=== PATIENT | female | born 1975 | race Caucasian/White ===

== ENCOUNTER 2017-09-19 12:19 | Observation (INO) ==
--- NOTE | 2017-09-19 12:33 | Emergency Department Note ---
Disposition Clinical Impression: Bradycardia Dyspnea Qualifiers: Dyspnea type: unspecified Qualified Code(s): R06.00 - Dyspnea, unspecified Disposition: Admitted As Inpatient Condition: Undetermined Referrals: Kendrick Altman MD [Primary Care Provider] - Forms: ED Satisfaction Letter Time of Disposition: 15:14 General Adult HPI - General Chief complaint: ED Arrhythmia/Palpitations Stated complaint: low heart rate Time Seen by Provider: 09/19/17 12:28 Source: patient, EMS Mode of arrival: EMS Limitations: no limitations Nursing Notes Reviewed: Yes Vital Signs Reviewed: Yes - History of Present Illness HPI Narrative: 42-year-old female who arrives from urgent care by EMS with concern for bradycardia. The patient went into the urgent care complaining of some mild shortness of breath and generalized weakness feeling. The patient denied any chest pain. She is currently on Lasix and losartan for hypertension. Lasix for fluid overload at times but has never been diagnosed with CHF. Patient denies any other complaints at this time. She is alert and oriented during the entire urgent care visit, EMS and arrival to the emergency department. She denies any other complaints at this time. The patient's heart rate was in the mid 40s upon arrival from EMS but they stated in route her heart rate increase in the 60s. At that time she denied any other complaints other than this mild shortness of breath. She is resting comfortably at this time an alert and oriented 3 and answering all questions appropriately. Her blood pressure is 140s and the systolic. Onset (ago): unknown Radiation: non-radiation Pain Scale: 0 Improves with: nothing Worsens with: nothing Associated symptoms: Reports: shortness of breath Treatments Prior to Arrival: none - Related Data Home Medications Medication Instructions Recorded Confirmed ALPRAZolam [Xanax 0.5 MG Tablet] 0.5 mg PO HS PRN 12/01/16 12/01/16 Cholecalciferol (D-3) [Vitamin D] 2,000 unit PO DAILY 12/01/16 12/01/16 Escitalopram [Lexapro] 10 mg PO HS 12/01/16 12/01/16 Esomeprazole Magnesium [Nexium] 40 mg PO HS 12/01/16 12/01/16 Losartan Potassium [Cozaar] 50 mg PO HS 12/01/16 12/01/16 Multivitamin [One Daily Essential] 1 each PO DAILY 12/01/16 12/01/16 SUMAtriptan Succinate [Imitrex] 100 mg PO ONCE PRN MDD MAY REPEAT 12/01/1612/01 IN 2 HOURS Torsemide [Demadex] 10 mg PO DAILY PRN 12/01/16 12/01/16 Allergies Allergy/AdvReac Type Severity Reaction Status Date / Time sulfamethoxazole Allergy Hives Unverified 09/19/17 12:26 [From Bactrim] trimethoprim [From Bactrim] Allergy Hives Unverified 09/19/17 12:26 Amoxicillin AdvReac EXTREME Unverified 09/19/17 12:26 NAUSEA propoxyphene AdvReac NAUSEA,VOMI Unverified 09/19/17 12:26 [From Darvocet-N] TING All systems ED: reviewed and negative except as stated. Constitutional: Denies: fever, chills, weakness, weight change Cardiovascular: Reports: edema (Baseline). Denies: chest pain, palpitations, dyspnea on exertion, orthopnea, syncope Respiratory: Reports: dyspnea. Denies: cough, wheezes, hemoptysis Gastrointestinal: Denies: abdominal pain, nausea, vomiting Musculoskeletal: Denies: back pain, myalgia Integumentary: Denies: rash Neurological: Denies: headache, weakness, numbness, paresthesias, confusion, abnormal gait, vertigo Past Medical History - Past Medical History Attestation: Yes The following information was validated with the patient. Source: patient Medical history: Reports: hypertension Surgical history: Reports: non-contributory Psychiatric history: Reports: anxiety, depression - Social History Smoking Status: Never smoker Smokeless Tobacco Status: No Alcohol use: Reports: rarely Drug use: Reports: none Physical Exam - General Limitations: no limitations General appearance: alert, in no apparent distress - Head Head exam: atraumatic, normocephalic, normal inspection - Eye Eye exam: Present: normal appearance, PERRL, EOMI - ENT ENT exam: normal exam, normal oropharynx, mucous membranes moist - Neck Neck exam: Present: normal inspection, full ROM, trachea midline - Chest Chest inspection: Present: normal inspection, symmetric chest wall rise - Respiratory Respiratory exam: Present: normal lung sounds bilaterally - Cardiovascular Cardiovascular exam: Present: regular rate, normal rhythm, normal heart sounds - Abdominal Exam Abdominal exam: Present: soft, Non-Tender. Absent: tenderness, distention, guarding, rebound, rigidity - Extremities Exam Extremities exam: Present: normal inspection, full ROM, pedal edema (Nonpitting) . Absent: tenderness - Neurological Exam Neurological exam: Present: alert, oriented X3, CN II-XII intact. Absent: motor sensory deficit Course - Reevaluation(s) Reevaluation #1: patient's d-dimer was elevated at 848, we will perform a CTA of her chest. The patient remained bradycardic intermittently between the upper 40s to low 50s. She remains mildly generalized weak and short of breath. No acute distress noted on examination. The patient remains stable at this time. Time: 13:19 Reevaluation #2: The patient's CTA of the chest demonstrates no acute process including PE. With concern for The patient's symptoms when she drops into the 40s with unknown at etiology, I will speak to cardiology with likely admission to the hospital for further workup and care. Patient made aware and agrees up plans. Time: 14:34 - Consultations Consultation #1: we spoke with Dr. Murillo in cardiology. He will agreed to be consulted on the patient at this time. We will admit the patient to the hospitalist. Time: 14:56 Vital Signs Temperature 98.4 F 09/19/17 12:22 Pulse Rate 48 09/19/17 12:22 Respiratory Rate 16 09/19/17 12:22 Blood Pressure 160/85 09/19/17 12:22 O2 Sat by Pulse Oximetry 97 09/19/17 12:22 Temperature 98.4 F 09/19/17 12:22 Pulse Rate 48 09/19/17 14:21 Respiratory Rate 18 09/19/17 14:21 Blood Pressure 116/71 09/19/17 14:21 O2 Sat by Pulse Oximetry 100 09/19/17 14:21 Oxygen Delivery Oxygen Delivery Room Air Medical Decision Making - MDM Narrative Medical decision making narrative: patient's workup in the emergency department demonstrates no acute process. The patient has remained bradycardic and mildly symptomatic with her shortness of breath and generalized weakness. She has been stable since she is arrived to the emergency department. After speaking with Dr. Murillo and cardiology he had no further recommendations and agrees to be consulted on the patient. Accepted by Dr. Fontanez. - Lab Data Lab results reviewed: Yes I reviewed the patient's lab results. Result diagrams: 09/19/17 12:38 09/19/17 12:38 Lab Results 09/19/17 09/19/17 09/19/17 Range/Units 12:38 12:38 12:38 WBC 8.0 (4.3-11.1) K/mcL RBC 4.06 (3.82-4.97) M/mcL Hgb 11.7 (11.5-15.4) g/dL Hct 34.9 L (35.3-44.9) % MCV 86.0 (83.0-100.0) fL MCH 28.8 (28.0-33.3) pg MCHC 33.5 (31.6-35.5) g/dL RDW 14.0 (11.5-14.5) % Plt Count 242 (140-400) K/mcL MPV 11.3 (9.4-12.4) fL Immature Gran % 0.2 (0-4) % Seg Neutrophils % 61.7 % Lymphocytes % 31.1 % Monocytes % 5.1 % Eosinophils % 1.4 % Basophils % 0.5 % Neutrophils # 4.9 (1.6-8.9) K/mcL Lymphocytes # 2.5 (0.6-4.6) K/mcL Monocytes # 0.4 (0.0-1.3) K/mcL Eosinophils # 0.1 (0.0-0.6) K/mcL Basophils # 0.0 (0.0-0.2) K/mcL PT 11.8 (9.4-12.1) Seconds INR 1.1 APTT 27.7 (26.0-36.0) Seconds D-Dimer 848 H (0-500) ng/mLFEU Sodium 142 (136-145) mEq/L Potassium 3.9 (3.5-4.5) mEq/L Chloride 111 H (98-109) mEq/L Carbon Dioxide 22 (19-29) mEq/L BUN 8 (7-20) mg/dL Creatinine 0.88 (0.57-1.11) mg/dL Est GFR ( Amer) > 60 (> 60) Est GFR (Non-Af Amer) > 60 (> 60) BUN/Creatinine Ratio 9 (6-26) Glucose 98 (70-99) mg/dL Calculated Osmolality 292 (280-300) Calcium 9.2 (8.6-10.8) mg/dL Troponin I (0-0.03) ng/mL TSH 2.655 (0.350-4.840) mcIU/mL 09/19/17 Range/Units 12:38 WBC (4.3-11.1) K/mcL RBC (3.82-4.97) M/mcL Hgb (11.5-15.4) g/dL Hct (35.3-44.9) % MCV (83.0-100.0) fL MCH (28.0-33.3) pg MCHC (31.6-35.5) g/dL RDW (11.5-14.5) % Plt Count (140-400) K/mcL MPV (9.4-12.4) fL Immature Gran % (0-4) % Seg Neutrophils % % Lymphocytes % % Monocytes % % Eosinophils % % Basophils % % Neutrophils # (1.6-8.9) K/mcL Lymphocytes # (0.6-4.6) K/mcL Monocytes # (0.0-1.3) K/mcL Eosinophils # (0.0-0.6) K/mcL Basophils # (0.0-0.2) K/mcL PT (9.4-12.1) Seconds INR APTT (26.0-36.0) Seconds D-Dimer (0-500) ng/mLFEU Sodium (136-145) mEq/L Potassium (3.5-4.5) mEq/L Chloride (98-109) mEq/L Carbon Dioxide (19-29) mEq/L BUN (7-20) mg/dL Creatinine (0.57-1.11) mg/dL Est GFR ( Amer) (> 60) Est GFR (Non-Af Amer) (> 60) BUN/Creatinine Ratio (6-26) Glucose (70-99) mg/dL Calculated Osmolality (280-300) Calcium (8.6-10.8) mg/dL Troponin I 0.01 (0-0.03) ng/mL TSH (0.350-4.840) mcIU/mL - Radiology Data Radiology results reviewed: Yes I reviewed the patient's radiology results. - EKG Data EKG #1 EKG attestation: Yes I reviewed and interpreted this EKG. EKG results narrative: Heart rate 53 bpm. MN interval 147 ms. QTc 460 ms. Sinus bradycardia. No ST elevation or ST depression noted. EKG similar appearance to EKG from urgent care with the exception of slightly higher rate. Remains bradycardic.
[2017-09-19 12:48] LABS: Basophils % 0.5 %; Eosinophils # 0.1 K/mcL (0.0-0.6); Eosinophils % 1.4 %; Hematocrit 34.9 % (35.3-44.9); Hemoglobin 11.7 g/dL (11.5-15.4); Immature Granulocytes % 0.2 % (0-4); Lymphocytes # 2.5 K/mcL (0.6-4.6); Lymphocytes % 31.1 %; Mean Corpuscular HGB Conc 33.5 g/dL (31.6-35.5); Mean Corpuscular Hemoglobin 28.8 pg (28.0-33.3); Mean Platelet Volume 11.3 fL (9.4-12.4); Monocytes # 0.4 K/mcL (0.0-1.3); Monocytes % 5.1 %; Neutrophils # 4.9 K/mcL (1.6-8.9); Platelet Count 242 K/mcL (140-400); Red Blood Count 4.06 M/mcL (3.82-4.97); Segmented Neutrophils % 61.7 %
[2017-09-19 12:58] LABS: INR 1.1; Prothrombin Time 11.8 Seconds (9.4-12.1)
[2017-09-19 13:01] LABS: Activated Partial Thrombo Time 27.7 Seconds (26.0-36.0)
[2017-09-19 13:02] LABS: BUN/Creatinine Ratio 9 (6-26); Blood Urea Nitrogen 8 mg/dL (7-20); Calcium 9.2 mg/dL (8.6-10.8); Carbon Dioxide 22 mEq/L (19-29); Chloride 111 mEq/L (98-109); Glucose 98 mg/dL (70-99); Osmolality,Calculated 292 (280-300); Potassium 3.9 mEq/L (3.5-4.5); Sodium 142 mEq/L (136-145); eGFR For African Americans > 60 (> 60); eGFR For Non-African Americans > 60 (> 60)
[2017-09-19 13:24] LABS: Thyroid Stimulating Hormone 2.655 mcIU/mL (0.350-4.840)
--- NOTE | 2017-09-19 13:47 | Emergency Department Note ---
START Narrative - START START: I examined this patient and my medical decision-making was reviewed with the Resident Physician. I agree with the documented findings, disposition and treatment plan as described except to the extent set forth below. 42-year-old female presents emergency room for 2 days of shortness of breath. Patient went to urgent care was found to have a low heart rate in the 40s and was sent to the ER. She has had a little bit of intermittent chest pain associated with the shortness of breath. No long travels in a car plane. She states her legs are slightly swollen as compared to normal. She denies any fevers. No cough or sputum production. No history of any PE or DVT. No coronary disease. EKG shows sinus bradycardia. Rule her out for a possible pulmonary embolus as well. We will do a CTA of the chest. Patient will need to be admitted for further cardiac workup as well.
[2017-09-19] MEDS ORDERED: Acetaminophen 325 MG TABLET PO PRN (17:07)
[2017-09-19] MEDS ORDERED: Naloxone 0.4 MG/ML INJ IVP PRN (17:07)
--- NOTE | 2017-09-19 17:26 | Internal Med History&Physical ---
Date of Encounter: 09/19/17 Time of Encounter: 17:21 Assessment and Plan (1) Bradycardia Current visit: Yes Status: Acute Patient has been experiencing exertional dyspnea as well as exertional chest pain. Heart rate was found to be 48 on presentation. EKG does show a borderline QTc interval of 460 patient is on Lexapro we will hold that for now Will obtain a cardiac echo Continuous cardiac monitoring Monitor electrolytes [employer] has been consulted (2) Chest pain Current visit: Yes Status: Acute Patient has been experiencing chest pain on exertion which is relieved with rest she does not have any cardiac history and has not had any cardiac workup in the past as suspect this is related to her bradycardia we will continue to trend her troponins Continuous cardiac monitoring Continue with statin we will add an aspirin no beta venkat at this time due to bradycardia Cardiology has been consulted We will obtain a cardiac echo Qualifiers: Chest pain type: unspecified Qualified Code(s): R07.9 - Chest pain, unspecified (3) Hypertension Current visit: No Status: Chronic Presently blood pressure is controlled we will continue with home medications losartan Qualifiers: Hypertension type: essential hypertension Qualified Code(s): I10 - Essential (primary) hypertension (4) DVT prophylaxis Current visit: Yes Status: Acute Lovenox subcutaneous Internal Medicine - H&P: HPI Chief complaint: CP Admitted From: Emergency Dept Plans for Post Hospital Care: Home History of present illness: Ms. Whalen is a 42 year old female past history of hypertension and prediabetes GERD depression hypercholesterolemia. According to the patient's for the past 2 days she has been experiencing midsternal chest pressure 5 out of 10 nonradiating which is worse on exertion and relieves with rest. She has associated symptoms of shortness of breath and fatigue she presented to urgent care with concerns of shortness of breath she was found to have a heart rate in the 40s and was advised to go to the ER. Patient denies any past cardiac history and has not had a cardiac workup. She denies any syncopal episodes or lightheadedness. During transport by EMS for heart rate has been 40s upon arrival and increased to the 60s once arrived to the ER. Lab work was obtained which was unremarkable except for an elevated d-dimer CTA chest was obtained which was negative for any PE. ER physician did speak to cardiology who will see patient upon consult. Patient has been admitted for further workup and evaluation. Presently patient lies A chest pain or sense of breath. She is 53 on the monitor and his hemodynamic is stable at this time. Past Med Surg Social Fam HX - Past Medical History Medical history: hypertension Psychiatric history: anxiety, depression - Past Surgical History Surgical History: non-contributory - Social History Smoking Status: Never smoker Smokeless Tobacco Status: No Alcohol use: rarely Drug use: none Internal Medicine - H&P: Meds ALPRAZolam [Xanax 0.5 MG Tablet] 0.5 mg PO HS PRN 12/01/16 [History] Cholecalciferol (D-3) [Vitamin D] 2,000 unit PO DAILY 12/01/16 [History] Escitalopram [Lexapro] 10 mg PO HS 12/01/16 [History] Esomeprazole Magnesium [Nexium] 40 mg PO HS 12/01/16 [History] Losartan Potassium [Cozaar] 50 mg PO HS 12/01/16 [History] Multivitamin [One Daily Essential] 1 each PO DAILY 12/01/16 [History] SUMAtriptan Succinate [Imitrex] 100 mg PO Q2H PRN MDD 200 mg 12/01/16 [History] Torsemide [Demadex] 10 mg PO DAILY PRN 12/01/16 [History] 3 Allergy/AdvReac Type Severity Reaction Status Date / Time sulfamethoxazole Allergy Hives Unverified 09/19/17 12:26 [From Bactrim] trimethoprim [From Bactrim] Allergy Hives Unverified 09/19/17 12:26 Amoxicillin AdvReac EXTREME Unverified 09/19/17 12:26 NAUSEA propoxyphene AdvReac NAUSEA,VOMI Unverified 09/19/17 12:26 [From Darvocet-N] TING All Systems PM: A 10-system review of systems was performed and is negative for pertinent findings except as documented above in the HPI. - Constitutional Constitutional: fatigue, no chills, no fever(s), no night sweats - EENT Eyes: no change in vision, no discharge, no pain, no photophobia Nose, mouth and throat: no dysphagia, no nasal discharge, no neck pain, no sore throat - Cardiovascular Cardiovascular ROS IM: chest pain, dyspnea on exertion, edema, no diaphoresis, no lightheadedness, no palpitations, no syncope - Respiratory Respiratory: dyspnea on exertion - Gastrointestinal Gastrointestinal: no abdominal pain, no diarrhea, no hematemesis, no hematochezia, no melena, no nausea, no vomiting - Genitourinary Genitourinary: no change in urinary stream, no dysuria, no flank pain, no hematuria - Musculoskeletal Musculoskeletal ROS IM: no numbness, no tingling - Integumentary Integumentary IM: no rash, no unusual bruising - Neurological Neurological ROS: no confusion, no convulsions, no focal weakness, no numbness, no tingling, no tremor(s) - Hematologic/Lymphatic Hematologic/Lymphatic: no easy bruising - Constitutional Vitals: Temp Pulse Resp BP Pulse Ox 98.1 F 49 12 139/86 100 09/19/17 17:14 09/19/17 17:14 09/19/17 17:14 09/19/17 17:14 09/19/17 17:14 General appearance: Present: A&O X 3 - Head Head exam: Present: atraumatic, normocephalic - Eye Eye exam: Present: PERRL, conjuntiva pink, sclera anicteric Pupils: Present: PERRL - Neck Neck exam general surgery: Present: supple, trachea midline. Absent: lymphadenopathy - Respiratory Respiratory exam: Present: CTAB. Absent: accessory muscle use, rales, rhonchi, wheezes - Cardiovascular Cardiovascular exam: Present: bradycardia, RRR, +S1, +S2. Absent: diastolic murmur, gallop, rubs, systolic murmur - GI/Abdominal GI/Abdominal exam: Present: normal bowel sounds, soft, no peritoneal signs. Absent: distended, tenderness - Extremities Exam Extremities exam: Present: pedal edema, warm, radial pulses palpable and symmetrical. Absent: calf tenderness, cyanotic - Neurological Exam Neurological exam: Present: CN II-XII intact, oriented X3, no focal deficits. Absent: pronater drift, facial droop, speech deficit - Skin Skin exam: Present: dry, intact Internal Med - H&P Results - Labs CBC & Chem 7: 09/19/17 12:38 09/19/17 12:38 - EKG Data Rate: bradycardia - EKG Data EKG comments: 09/19/17 17:35 QTC 460 - Diagnostic Studies Other Images Additional comments: Chest X-Ray 09/19/17 12:28 IMPRESSION: No acute cardiopulmonary disease. D/ / Zac Lombardi MD / Zac Lombardi MD Interpreting Provider: Zac Lombardi MD Chest CTA 09/19/17 13:17 IMPRESSION: No evidence of pulmonary embolism or acute pulmonary abnormality. Benign calcified granuloma right upper lobe. Nonspecific small amount of fluid in the anterior mediastinum. D/ / 09/19/2017 14:41:25 Elizabeth Aguilar MD / guille Interpreting Provider: Elizabeth Aguilar MD
[2017-09-19] MEDS ORDERED: Aspirin 325 MG TABLET PO ONE (18:37)
[2017-09-20 06:12] LABS: Basophils % 0.6 %; Eosinophils # 0.2 K/mcL (0.0-0.6); Eosinophils % 2.6 %; Hematocrit 32.6 % (35.3-44.9); Hemoglobin 11.1 g/dL (11.5-15.4); Immature Granulocytes % 0.2 % (0-4); Lymphocytes # 2.1 K/mcL (0.6-4.6); Mean Corpuscular Hemoglobin 29.4 pg (28.0-33.3); Mean Corpuscular Volume 86.5 fL (83.0-100.0); Mean Platelet Volume 11.8 fL (9.4-12.4); Monocytes # 0.5 K/mcL (0.0-1.3); Monocytes % 6.9 %; Neutrophils # 3.8 K/mcL (1.6-8.9); Platelet Count 199 K/mcL (140-400); Red Blood Count 3.77 M/mcL (3.82-4.97); Red Cell Distribution Width 14.1 % (11.5-14.5); Segmented Neutrophils % 57.7 %
[2017-09-20 06:24] LABS: BUN/Creatinine Ratio 10 (6-26); Blood Urea Nitrogen 9 mg/dL (7-20); Calcium 8.8 mg/dL (8.6-10.8); Carbon Dioxide 23 mEq/L (19-29); Chloride 111 mEq/L (98-109); Cholesterol 145 mg/dL (< 200); Glucose 111 mg/dL (70-99); HDL Cholesterol 49 mg/dL (40-59); LDL Cholesterol,Calculated 76 mg/dL (0-99); Magnesium 2.1 mg/dL (1.6-2.6); Osmolality,Calculated 291 (280-300); Potassium 3.8 mEq/L (3.5-4.5); Sodium 141 mEq/L (136-145); Triglycerides 101 mg/dL (< 150); eGFR For African Americans > 60 (> 60); eGFR For Non-African Americans > 60 (> 60)
[2017-09-20 06:29] LABS: Amphetamine Screen,Urine Negative ng/mL (Cutoff=1000); Barbiturate Screen,Urine Negative ng/mL (Cutoff=200); Benzodiazepines Screen,Urine Negative ng/mL (Cutoff=200); Cannabinoid Screen,Urine Negative ng/mL (Cutoff = 50); Cocaine Screen,Urine Negative ng/mL (Cutoff= 300); Opiate Screen,Urine Negative ng/mL (Cutoff=300); Phencyclidine Screen,Urine Negative ng/mL (Cutoff=25)
[2017-09-20] MEDS ORDERED: *HR* Enoxaparin 40 MG/0.4 ML SYRINGE SQ SCH (07:00)
[2017-09-20] MEDS ORDERED: Multivit/Ca/Min/Fe/FA 1 TAB TABLET PO SCH (09:00)
[2017-09-20] MEDS ORDERED: Aspirin 81 MG TAB.CHEW PO SCH (09:00)
--- NOTE | 2017-09-20 09:31 | Cardiology Consult Note ---
Date of Encounter: 09/20/17 Time of Encounter: 09:19 Assessment and Plan (1) Chest pain Current Visit: Yes Status: Acute ECHO from 09/19/17 reviewed: LVEF 65% Normal left ventricular diastolic function Normal right ventricular structure and function No significant valvular dysfunction No pulmonary hypertension Trop neg x3 EKG reviewed and NSR this morning Currently on ASA, ARB and statin therapy Chest pain has subjectively resolved Based her risk factors, we recommend stress ECHO to further evaluate chest pain along with bradycardia. NPO. See below. Qualifiers: Chest pain type: precordial pain Qualified Code(s): R07.2 - Precordial pain (2) Bradycardia Current Visit: Yes Status: Acute Hemodynamically stable. BP stable on ARB therapy. No BB. Heart rate in 40s on presentation to ED yesterday Nursing reports HR low as 35 while sleeping last night Mild QT prolongation - Agree with holding Lexapro This morning HR in 50-70s during evaluation TSH normal 2.65. Patient does exercise three times per week with elliptical and weight lifting Recommend stress ECHO today and may need event monitoring on discharge (3) Dyspnea Current Visit: Yes Status: Acute Clinically resolving LE edema significantly improved since yesterday Patient does not have a high sodium diet Patient taking Torsemide at home for recent edema after weight loss Qualifiers: Dyspnea type: dyspnea on exertion Qualified Code(s): R06.09 - Other forms of dyspnea (4) Hypertension Current Visit: No Status: Chronic Stable at this time. ARB therapy. No changes. Qualifiers: Hypertension type: essential hypertension Qualified Code(s): I10 - Essential (primary) hypertension (5) Hypercholesteremia Current Visit: Yes Status: Chronic Statin therapy. (6) NAFLD (nonalcoholic fatty liver disease) Current Visit: Yes Status: Chronic Discussion w patient/family: The assessment and plan as outlined above was discussed with the patient and/or family members who expressed understanding and agreement. All questions were answered. Thank you for involving us in the care of your patient. Please call with any questions. History of Present Illness Chief complaint: bradycardia History of present illness: Ms. Whalen is a very pleasant 42 year old female with a past medical history of hypertension, hypercholesterolemia, prediabetes, GERD, depression and fatty liver disease who presented to the [facility] ED yesterday after being sent by an Urgent Care on [facility] for bradycardia. She reports over the last week or so, she has been experiencing weight gain, leg swelling, dyspnea on exertion , chest pain on exertion and lightheadedness. She goes on to state that she has been experiencing shortness of breath/chest pain at rest for one day. Patient states the chest pain is 1/10 at rest and 4/10 on exertion. Patient works at [employer] in [place] [employer] working a [employer] and yesterday as she walked down a trailer carrying some items, she became profoundly short of breath, chest pain and lightheaded. After evaluation at the urgent care and transfer to [facility] ED, on arrival she was found to have HR in 40s with stable BP. EKG sinus bartolome. CXR was negative for acute process and DDIMER was 848. Follow-up CTA was benign ruling out PE. Patient was subsequently admitted via the hospitalist service. ECHO ordered. Cardiology consult was placed and on evaluation, she denies any PND, orthopnea or previous cardiac workup. She does workup with elliptical and weight lifting three times per week. Nonsmoker. Father has cardiac history bradycardia and stent placement at age 54. TSH 2.65 and trop neg x3. We will continue to follow and offer further recommendations. Past Med Surg Social Fam HX - Past Medical History Medical history: hypertension Psychiatric history: anxiety, depression - Past Surgical History Surgical History: non-contributory - Social History Smoking Status: Never smoker Smokeless Tobacco Status: No Alcohol use: rarely Drug use: none - Family History Father Age: 67 Living Status: Still Living Hx Family Cardiac Disorders: Yes (has stents) Hx Family Cancer: Yes (skin cancer) Medications and Allergies ALPRAZolam [Xanax 0.5 MG Tablet] 0.5 mg PO HS PRN 12/01/16 [History] Cholecalciferol (D-3) [Vitamin D] 2,000 unit PO DAILY 12/01/16 [History] Escitalopram [Lexapro] 10 mg PO HS 12/01/16 [History] Esomeprazole Magnesium [Nexium] 40 mg PO HS 12/01/16 [History] Losartan Potassium [Cozaar] 50 mg PO HS 12/01/16 [History] Multivitamin [One Daily Essential] 1 each PO DAILY 12/01/16 [History] SUMAtriptan Succinate [Imitrex] 100 mg PO Q2H PRN MDD 200 mg 12/01/16 [History] Torsemide [Demadex] 10 mg PO DAILY PRN 12/01/16 [History] 3 Allergy/AdvReac Type Severity Reaction Status Date / Time sulfamethoxazole Allergy Hives Unverified 09/19/17 12:26 [From Bactrim] trimethoprim [From Bactrim] Allergy Hives Unverified 09/19/17 12:26 Amoxicillin AdvReac EXTREME Unverified 09/19/17 12:26 NAUSEA propoxyphene AdvReac NAUSEA,VOMI Unverified 09/19/17 12:26 [From Darvocet-N] TING All Systems Review: A 10-system review of systems was performed and is negative for pertinent findings except as documented above in the HPI. - Constitutional Constitutional: no fever(s), no headache(s) - Cardiovascular Cardiovascular: as per HPI - Respiratory Respiratory: no cough - Gastrointestinal Gastrointestinal: no abdominal pain - Genitourinary Genitourinary: no dysuria - Musculoskeletal Musculoskeletal: no myalgias - Neurological Neurological: no abnormal speech - Psychiatric Psychiatric: depression Physical Examination Vital Signs, Last 4 Hours Temp Pulse Resp BP Pulse Ox 09/20/17 06:17 97.6 F 48 15 123/71 99 General: Conversant, No Apparent Distress HEENT: Atraumatic, Normocephaly, Mucus Membranes Moist Neck: No JVD, Normal carotid pulses Cardiac: Reg Rate and Rhythm, Normal S1 and S2, No Murmur Lungs: Normal Breath Sounds, No Wheeze, Rales, Rhonchi Neuro: Alert and responsive, No focal deficits noted Abdomen: Soft, Non-Tender Skin: No rashes noted on visualized skin Musculoskeletal: No Chest Wall Tenderness Extremities: No Clubbing, No Cyanosis, Normal Pulses, Other (trace bilateral LE edema) Results 09/20/17 05:17 09/20/17 05:17 Lab Results 09/19/17 09/19/17 09/20/17 18:20 23:48 05:17 WBC 6.6 Hgb 11.1 L Hct 32.6 L Plt Count 199 Sodium Potassium Chloride Carbon Dioxide BUN Creatinine Glucose Calcium Magnesium Troponin I 0.01 0.01 09/20/17 05:17 WBC Hgb Hct Plt Count Sodium 141 Potassium 3.8 Chloride 111 H Carbon Dioxide 23 BUN 9 Creatinine 0.89 Glucose 111 H Calcium 8.8 Magnesium 2.1 Troponin I - Imaging and Cardiology Echo: report reviewed - EKG Interpretation EKG results cardiology: personally reviewed, normal ECG, sinus rhythm Consult Discharge Plan - Plan Referrals: Kendrick Altman MD [Primary Care Provider] -
--- NOTE | 2017-09-20 10:58 | Internal Med Progress Note ---
<Jean Pierre Pendleton - Last Filed: 09/20/17 17:00> Date of Encounter: 09/20/17 Time of Encounter: 10:56 - Assessment and plan (1) Bradycardia Current Visit: Yes Status: Acute Assessment and plan: HR 48-61 and regular overnight. Denies syncope, light-headedness, or palpitations. EKG with bradycardia and borderline QTc interval of 460, continue to hold lexapro Echo: LVEF 65%, normal diastolic function, no valvular dysfunction TSH normal, Electrolytes normal Plan: Cardiology consulted - appreciate recommendations - stress echo ordered Continue cardiac monitoring (2) Chest pain Current Visit: Yes Status: Acute Assessment and plan: Retrosternal pain, worse on exertion. Mild improvement today. Associated with dyspnea on exertion. No personal cardiac history. Troponins negative x3. No ST changes on EKG Plan: Cardiology consulted - stress Echo ordered Continue ASA, ARB. Add statin Qualifiers: Chest pain type: precordial pain Qualified Code(s): R07.2 - Precordial pain (3) Hypertension Current Visit: No Status: Chronic Assessment and plan: Normotensive currently - cont ARB Qualifiers: Hypertension type: essential hypertension Qualified Code(s): I10 - Essential (primary) hypertension (4) NAFLD (nonalcoholic fatty liver disease) Current Visit: Yes Status: Chronic Assessment and plan: Hx of NAFLD per patient - Subjective Interval history: Pt doing well this AM. Reports some continued retrosternal chest tightness, worse with exertion. No relation to eating, no cough or bad breath, no trouble swallowing, no tender to palpation. Reports some dyspnea on exertion, fatigue, and lower extremity edema. She does report that her LE edema is improving. HR in 50-60's during exam. Denies dizziness, light-headedness, palpitations, diaphoresis, N/V/D/C, dysuria, or leg pain. - Constitutional Vitals: Temp Pulse Resp BP Pulse Ox 98.0 F 47 15 115/63 98 09/20/17 10:53 09/20/17 10:53 09/20/17 10:53 09/20/17 10:53 09/20/17 10:53 General appearance: Present: A&O X 3 - Head Head exam: Present: atraumatic, normocephalic - Eye Eye exam: Present: conjuntiva pink, sclera anicteric - Neck Neck exam general surgery: Present: supple, trachea midline. Absent: lymphadenopathy - Respiratory Respiratory exam: Present: CTAB. Absent: accessory muscle use, rales, rhonchi, wheezes - Cardiovascular Cardiovascular exam: Present: +S1, +S2. Absent: diastolic murmur, systolic murmur Additional comments: Regular rhythm, rate is bradycardic - GI/Abdominal GI/Abdominal exam: Present: normal bowel sounds, soft, no peritoneal signs. Absent: distended, tenderness - Extremities Exam Extremities exam: Present: pedal edema, warm, radial pulses palpable and symmetrical. Absent: calf tenderness, cyanotic - Neurological Exam Neurological exam: Present: CN II-XII intact, oriented X3, no focal deficits. Absent: facial droop, speech deficit - Skin Skin exam: Present: dry, intact Internal Medicine: Result - Labs CBC & Chem 7: 09/20/17 05:17 09/20/17 05:17 Labs: Short CBC 09/20/17 Range/Units 05:17 WBC 6.6 (4.3-11.1) K/mcL Hgb 11.1 L (11.5-15.4) g/dL Hct 32.6 L (35.3-44.9) % Plt Count 199 (140-400) K/mcL Neutrophils # 3.8 (1.6-8.9) K/mcL BMP 09/20/17 05:17 Sodium 141 Potassium 3.8 Chloride 111 H Carbon Dioxide 23 BUN 9 Creatinine 0.89 Glucose 111 H Calcium 8.8 Cardiac Enzymes 09/19/17 09/19/17 Range/Units 18:20 23:48 Troponin I 0.01 0.01 (0-0.03) ng/mL - ABG Interpretation ABG results: PT/INR, D-dimer PT 11.8 Seconds (9.4-12.1) 09/19/17 12:38 D-Dimer 848 ng/mLFEU (0-500) H 09/19/17 12:38 - Impressions Impressions Echocardiogram 09/19/17 17:13 Impressions: LVEF 65%. Normal left ventricular diastolic function. Normal right ventricular structure and function. No significant valvular dysfunction. No pulmonary hypertension. Left Ventricular Wall Motion: Rest Echo Findings All wall segments showed normal motion. Findings: Study Quality * Technically adequate exam. ECG Findings * Sinus bradycardia. Left Ventricle * Normal LV chamber size, wall thickness and function. * Normal left ventricular diastolic function. * LVEF 65%. Right Ventricle * Normal right ventricular structure and function. Left Atrium * Normal left atrial size. Right Atrium * Normal right atrial size. Aortic Valve * No aortic regurgitation. * No aortic stenosis. * Aortic valve not well visualized. Mitral Valve * No mitral regurgitation. * Normal mitral valve structure. * No mitral stenosis. Tricuspid Valve * Tricuspid valve not well visualized. * Trace tricuspid regurgitation. * Estimated RA pressure is 8 mmHg. * Estimated RVSP is 25 mmHg. * No pulmonary hypertension. Pulmonic Valve * Pulmonic valve is not well visualized. * No pulmonic stenosis. * Trace pulmonic regurgitation. Aorta * Normally sized aortic root. Pulmonary Artery * Pulmonary artery not well visualized. Pericardium * There is no pericardial effusion present. Interatrial Septum * No evidence of PFO by color Doppler. IVC * The IVC is not dilated. There is less than 50% respiratory collapse. Consult Discharge Plan - Plan Instructions: Aspirin (By mouth), Simvastatin (By mouth), Chest Pain (DC), Bradycardia (DC) Additional Instructions: Take medications as prescribed Take simvastatin for cholesterol Take aspirin for heart health and prevention Continue to keep up the good work on lifestyle changes Follow-up with [facility] Follow-up with your PCP Return to the hospital if your symptoms return or worsen Referrals: Kendrick Altman MD [Primary Care Provider] - Prescriptions: Aspirin 81 mg PO DAILY #30 tab.chew Simvastatin [Zocor] 20 mg PO HS #30 tablet <Giovanni Peck - Last Filed: 09/20/17 18:09> Date of Encounter: 09/20/17 - Constitutional Vitals: Temp Pulse Resp BP Pulse Ox 98.0 F 61 15 117/66 99 09/20/17 14:59 09/20/17 14:59 09/20/17 14:59 09/20/17 14:59 09/20/17 14:59 Internal Medicine: Result - Labs CBC & Chem 7: 09/20/17 05:17 09/20/17 05:17 Labs: Short CBC 09/20/17 Range/Units 05:17 WBC 6.6 (4.3-11.1) K/mcL Hgb 11.1 L (11.5-15.4) g/dL Hct 32.6 L (35.3-44.9) % Plt Count 199 (140-400) K/mcL Neutrophils # 3.8 (1.6-8.9) K/mcL BMP 09/20/17 05:17 Sodium 141 Potassium 3.8 Chloride 111 H Carbon Dioxide 23 BUN 9 Creatinine 0.89 Glucose 111 H Calcium 8.8 Cardiac Enzymes 09/19/17 09/19/17 Range/Units 18:20 23:48 Troponin I 0.01 0.01 (0-0.03) ng/mL - ABG Interpretation ABG results: PT/INR, D-dimer PT 11.8 Seconds (9.4-12.1) 09/19/17 12:38 D-Dimer 848 ng/mLFEU (0-500) H 09/19/17 12:38 - Impressions Impressions Echocardiogram 09/19/17 17:13 Impressions: LVEF 65%. Normal left ventricular diastolic function. Normal right ventricular structure and function. No significant valvular dysfunction. No pulmonary hypertension. Left Ventricular Wall Motion: Rest Echo Findings All wall segments showed normal motion. Findings: Study Quality * Technically adequate exam. ECG Findings * Sinus bradycardia. Left Ventricle * Normal LV chamber size, wall thickness and function. * Normal left ventricular diastolic function. * LVEF 65%. Right Ventricle * Normal right ventricular structure and function. Left Atrium * Normal left atrial size. Right Atrium * Normal right atrial size. Aortic Valve * No aortic regurgitation. * No aortic stenosis. * Aortic valve not well visualized. Mitral Valve * No mitral regurgitation. * Normal mitral valve structure. * No mitral stenosis. Tricuspid Valve * Tricuspid valve not well visualized. * Trace tricuspid regurgitation. * Estimated RA pressure is 8 mmHg. * Estimated RVSP is 25 mmHg. * No pulmonary hypertension. Pulmonic Valve * Pulmonic valve is not well visualized. * No pulmonic stenosis. * Trace pulmonic regurgitation. Aorta * Normally sized aortic root. Pulmonary Artery * Pulmonary artery not well visualized. Pericardium * There is no pericardial effusion present. Interatrial Septum * No evidence of PFO by color Doppler. IVC * The IVC is not dilated. There is less than 50% respiratory collapse. - Attending Attestation See discharge summary of this date.
[2017-09-20 14:59] VITALS: BP 117/66
--- NOTE | 2017-09-20 16:47 | Discharge Summary ---
<Jean Pierre Pendleton - Last Filed: 09/20/17 16:43> Date of Encounter: 09/20/17 Time of Encounter: 16:44 - Discharge Diagnosis (1) Bradycardia Priority: Primary Status: Acute (2) Chest pain Priority: Secondary Status: Acute Qualifiers: Chest pain type: precordial pain Qualified Code(s): R07.2 - Precordial pain (3) Hypertension Priority: Secondary Status: Chronic Qualifiers: Hypertension type: essential hypertension Qualified Code(s): I10 - Essential (primary) hypertension (4) NAFLD (nonalcoholic fatty liver disease) Priority: Secondary Status: Chronic - Discharge Medications Prescriptions: Aspirin 81 mg PO DAILY #30 tab.chew Simvastatin [Zocor] 20 mg PO HS #30 tablet Home Medications: ALPRAZolam [Xanax 0.5 MG Tablet] 0.5 mg PO HS PRN 12/01/16 [History] Cholecalciferol (D-3) [Vitamin D] 2,000 unit PO DAILY 12/01/16 [History] Esomeprazole Magnesium [Nexium] 40 mg PO HS 12/01/16 [History] Losartan Potassium [Cozaar] 50 mg PO HS 12/01/16 [History] Multivitamin [One Daily Essential] 1 each PO DAILY 12/01/16 [History] SUMAtriptan Succinate [Imitrex] 100 mg PO Q2H PRN MDD 200 mg 12/01/16 [History] Torsemide [Demadex] 10 mg PO DAILY PRN 12/01/16 [History] Aspirin 81 mg PO DAILY #30 tab.chew 09/20/17 [Rx] Simvastatin [Zocor] 20 mg PO HS #30 tablet 09/20/17 [Rx] Allergies/Adverse Reactions: 3 Allergy/AdvReac Type Severity Reaction Status Date / Time sulfamethoxazole Allergy Hives Unverified 09/19/17 12:26 [From Bactrim] trimethoprim [From Bactrim] Allergy Hives Unverified 09/19/17 12:26 Amoxicillin AdvReac EXTREME Unverified 09/19/17 12:26 NAUSEA propoxyphene AdvReac NAUSEA,VOMI Unverified 09/19/17 12:26 [From Darvocet-N] TING Procedures/tests Complete & Pending: Procedures Performed prior 72 hours Category Date Time Status EV echocardiogram Routine Y 09/19/17 17:13 Completed EV stress echo Stat Y 09/20/17 10:37 Completed Date of admission: 09/19/17 16:11 Primary care physician: Kendrick lAtman MD Discharging clinician: Jean Pierre Pendleton Anticipated date of discharge: 09/20/17 - Patient Status Disposition: Home, Self-Care Condition: Fair Functional capacity at discharge: independent ambulation Overall status at discharge: patient is progressing back to baseline - Discharge Instructions Instructions: Aspirin (By mouth), Simvastatin (By mouth), Chest Pain (DC), Bradycardia (DC) Follow Up With: Kendrick Altman MD [Primary Care Provider] - Additional Instructions: Take medications as prescribed Take simvastatin for cholesterol Take aspirin for heart health and prevention Continue to keep up the good work on lifestyle changes Follow-up with [facility] Follow-up with your PCP Return to the hospital if your symptoms return or worsen - Diet and Activity Activity: increase activity as tolerated Diet: low fat, low cholesterol, low salt diet Interval History: Pt doing well with no complaints. HR is now in the 70's upon repeat encounter. Denies syncope, light-headedness, chest pain, dyspnea, N/V/D/C, dysuria, or leg pain. Hospital course: Ms. Whalen is a 42 year old female with PMH of HTN, anxiety, depression, and NAFLD presents to the hospital with bradycardia (HR in the 40's). 2 days ago she felt short of breath on exertion, had some retrosternal chest tightness, and lower extremity edema. Lab work was unremarkable, electrolytes normal, TSH normal. D-dimer was elevated, but CTA of the chest was negative. Troponins negative x3. No ST changes on EKG. Mild QTc prolongation so Lexapro was held and will not be restarted upon discharge. This is to be discussed further with PCP. Echo and Stress Echo showed EF 65%, normal wall function, normal valve function, and appropriate response to stress. Recommendations include continued lifestyle changes/dietary changes, aspirin, statin therapy, and close follow-up with PCP and cardiology. - Time Spent with Patient Total time spent providing and/or coordinating discharge services: Less than 30 minutes - Constitutional Vitals: Temp Pulse Resp BP Pulse Ox 98.0 F 61 15 117/66 99 09/20/17 14:59 09/20/17 14:59 09/20/17 14:59 09/20/17 14:59 09/20/17 14:59 General appearance: Present: A&O X 3 - Head Head exam: Present: atraumatic, normocephalic - Eye Eye exam: Present: conjuntiva pink, sclera anicteric - Neck Neck exam general surgery: Present: supple, trachea midline. Absent: lymphadenopathy - Respiratory Respiratory exam: Present: CTAB. Absent: accessory muscle use, rales, rhonchi, wheezes - Cardiovascular Cardiovascular exam: Present: RRR, +S1, +S2. Absent: diastolic murmur, systolic murmur - GI/Abdominal GI/Abdominal exam: Present: normal bowel sounds, soft, no peritoneal signs. Absent: distended, tenderness - Extremities Exam Extremities exam: Present: warm, radial pulses palpable and symmetrical. Absent : calf tenderness, cyanotic, pedal edema - Neurological Exam Neurological exam: Present: CN II-XII intact, oriented X3, no focal deficits. Absent: facial droop, speech deficit - Skin Skin exam: Present: dry, intact <Giovanni Peck - Last Filed: 09/20/17 18:25> Date of Encounter: 09/20/17 - Discharge Diagnosis (1) Bradycardia Status: Acute (2) Chest pain Status: Acute Qualifiers: Chest pain type: precordial pain Qualified Code(s): R07.2 - Precordial pain (3) Hypertension Status: Chronic Qualifiers: Hypertension type: essential hypertension Qualified Code(s): I10 - Essential (primary) hypertension (4) NAFLD (nonalcoholic fatty liver disease) Status: Chronic (5) Hypercholesteremia Priority: Secondary Status: Chronic Procedures/tests Complete & Pending: Procedures Performed prior 72 hours Category Date Time Status EV echocardiogram Routine Y 09/19/17 17:13 Completed EV stress echo Stat Y 09/20/17 10:37 Completed Date of admission: 09/19/17 16:11 Primary care physician: Kendrick Altman MD Hospital course: Ms. Whalen is a 42 year old female - Time Spent with Patient Total time spent providing and/or coordinating discharge services: - Constitutional Vitals: Temp Pulse Resp BP Pulse Ox 98.0 F 61 15 117/66 99 09/20/17 14:59 09/20/17 14:59 09/20/17 14:59 09/20/17 14:59 09/20/17 14:59 - Attending Attestation I examined this patient and my medical decision-making was reviewed with the Resident Physician on 09/20/17. I agree with the documented findings, disposition and treatment plan as described except to the extent set forth below. Ms Whalen has been admitted for bradycardia. Stress test is negative. She is afebrile with stable vitals and ready for discharge home. Exam Alert. Comfortable Heart regular and not bartolome now Lungs clear No edema Plan D/C home today.
--- NOTE | 2017-09-20 17:29 | Electrocardiograph Report ---
[address] [place], [place] [address] Test Date: 2017-09-19 Pat Name: Cori Whalen Department: 103 Room: 2NE26 Gender: F Integration Software Engineer: AM : 1975 Requested By: Migue Caldwell Order Number: [id number] Reading MD: Katie Stringer Measurements Intervals [place] Rate: 53 P: 0 SD: 147 QRS: 19 QRSD: 81 T: 15 QT: 476 QTc: 460 Interpretive Statements SINUS BRADYCARDIA Electronically Signed On 09-20-2017 17:27:09 EDT by Katie Stringer
== END 2017-09-20 17:30 | disposition home or self-care (01) ==
LOC: 2NENU 12:19 → EMEROO 12:19 → SUATTDRO 16:11 → 2NENU 18:15
PROVIDERS: ADMIT Internal Medicine; ATTEND Internal Medicine